=== PATIENT | female | born 1955 | race Caucasian/White ===

== ENCOUNTER 2021-03-15 22:52 | Emergency (ER) | payer MEDICARE ==
[~2021-03-15] VITALS: Ht 162.6 cm; Wt 70.9 kg
[2021-03-15] MEDS ORDERED: LOSA50TA3 PO (23:12)
[2021-03-15] MEDS ORDERED: ATEN50TA PO (23:13)
[2021-03-15] MEDS ORDERED: HYDR25TA5 PO (23:13)
[2021-03-15 23:56] LABS: ALANINE AMINOTRANSFERASE 96 U/L (12-78); ALBUMIN 3.7 G/DL (3.4-5.0); ALBUMIN/GLOBULIN RATIO 0.9 (1.1-1.5); ALKALINE PHOSPHATASE 78 IU/L (46-116); ANION GAP 8 (8-16); ASPARTATE AMINO TRANSFERASE 44 U/L (10-37); BILIRUBIN,TOTAL 0.9 MG/DL (0.1-1.0); BLOOD UREA NITROGEN 21 MG/DL (7-18); BUN/CREATININE RATIO 25.6 (6.6-38.0); CALCIUM 9.6 MG/DL (8.5-10.1); CHLORIDE 93 MMOL/L (99-107); CREATININE 0.82 MG/DL (0.40-0.90); GLUCOSE 115 MG/DL (70-104); LIPASE 61 U/L (73-393); POTASSIUM 3.9 MMOL/L (3.5-5.1); SODIUM 127 MMOL/L (135-145); TOTAL CARBON DIOXIDE 26.3 MMOL/L (24-32); TOTAL PROTEIN 7.6 G/DL (6.4-8.2); eGFR 70 ML/MIN
[2021-03-16 00:11] LABS: BASOPHILS % (AUTO) 0.4 % (0-1); EOSINOPHILS # (AUTO) 0.1 X10'3 (0-0.9); EOSINOPHILS % (AUTO) 1.4 % (0-6); HEMATOCRIT 39.5 % (35.0-45.0); HEMOGLOBIN 13.7 g/dl (12.0-16.0); LYMPHOCYTES # (AUTO) 1.8 X10'3 (1.1-4.8); LYMPHOCYTES % (AUTO) 27.4 % (21-51); MEAN CORPUSCULAR HEMOGLOBIN 29.5 PG (27.0-31.0); MEAN CORPUSCULAR HGB CONC 34.8 g/dL (33.0-36.5); MEAN PLATELET VOLUME 10.2 FL (7.4-10.4); MONOCYTES # (AUTO) 0.4 X10'3 (0-0.9); NEUTROPHILS # (AUTO) 4.4 X10'3 (1.8-7.7); NEUTROPHILS % (AUTO) 64.8 % (42-75); PLATELET COUNT 161 X10'3 (140-440); RED BLOOD COUNT 4.65 X10'6 (4.20-5.60); RED CELL DISTRIBUTION WIDTH 12.6 % (11.5-14.5); WHITE BLOOD COUNT 6.7 X10'3 (4.5-11.0)
[2021-03-16] MEDS ORDERED: normal saline 1000ML IV soln IVB ONE (01:25)
[2021-03-16] MEDS ORDERED: proCHLORperazine 10 MG/2 ml inj IV ONE (01:25)
[2021-03-16] MEDS ORDERED: ketorolac trometh. 30mg/ml inj. IV ONE (02:10)
[2021-03-16 03:00] VITALS: BP 149/70
== END 2021-03-16 06:27 | disposition home or self-care (01) ==
LOC: ER 22:54
DX: R11.2 Nausea with vomiting, unspecified (principal); T41.45XA Adverse effect of unspecified anesthetic, initial encounter; E87.1 Hypo-osmolality and hyponatremia; R51.9 Headache, unspecified; I10 Essential (primary) hypertension; Z88.0 Allergy status to penicillin; Z79.899 Other long term (current) drug therapy; Y92.89 Other specified places as the place of occurrence of the external cause
CPT/HCPCS: 36415; 80053; 83690; 85025; 96361; 96374; 96375; 99285; J0780; J1885; J7030